=== PATIENT | female | born 1950 | race Caucasian/White ===

== ENCOUNTER → 2021-12-07 | Outpatient (CLI) | payer MEDICARE, OTHER | END | disposition home or self-care (01) | LOC: LAB SHORT 12:37 → LAB 12:37 | DX: N39.0 Urinary tract infection, site not specified (principal) | CPT/HCPCS: 87077; 87086; 87186 ==

== ENCOUNTER → 2021-12-21 | Outpatient (CLI) | payer MEDICARE, OTHER | END | disposition home or self-care (01) | LOC: LAB SHORT 13:20 | DX: N39.0 Urinary tract infection, site not specified (principal) | CPT/HCPCS: 87086 ==

== ENCOUNTER → 2023-04-10 | Outpatient (CLI) | payer MEDICARE, OTHER ==
[2023-04-10 16:15] LABS: Source, Urine Clean Catch
[2023-04-10 18:25] LABS: Appearance, Urine Cloudy (Clear); Bilirubin, Urine Neg (Neg); Blood, Urine 3+ (Neg); Color, Urine Yellow (P-Yellow); Glucose Qualitative, Urine Neg (Neg); Ketones, Urine Neg (Neg); Leukocyte Esterase, Urine 3+ (Neg); Nitrite, Urine Neg (Neg); Protein, Urine 2+ (Neg); Specific Gravity, Urine 1.015 (1.003-1.022); Urobilinogen, Urine NORM (Normal)
[2023-04-10 18:33] LABS: White Blood Cells, Urine TNTC /hpf (0-5)
[2023-04-10 18:34] LABS: Bacteria Many /hpf; Squamous Epithelial Cells Few /hpf (Few); Transitional Epithelial Cells Few /hpf (0-Rare)
== END ==
LOC: LAB SHORT 15:17 → LAB 15:17 → LAB FUT 04-09 16:15
PROVIDERS: Urology
DX: N39.0 Urinary tract infection, site not specified (principal)
CPT/HCPCS: 81001; 87086

== ENCOUNTER → 2024-05-03 | Outpatient (CLI) | payer MEDICARE, OTHER | END | disposition home or self-care (01) | LOC: LAB 08:35 → LAB SHORT 08:35 → PLD 08:35 | DX: L57.0 Actinic keratosis (principal) | CPT/HCPCS: 88305 ==

== ENCOUNTER → 2024-07-15 | Outpatient (CLI) | payer MEDICARE, OTHER ==
[2024-07-15 11:24] LABS: Source, Urine Voided
[2024-07-15 13:21] LABS: Appearance, Urine Cloudy (Clear); Bilirubin, Urine Neg (Neg); Blood, Urine 2+ (Neg); Color, Urine Yellow (P-Yellow); Glucose Qualitative, Urine Neg (Neg); Ketones, Urine Neg (Neg); Leukocyte Esterase, Urine 3+ (Neg); Nitrite, Urine Pos (Neg); Protein, Urine 1+ (Neg); Specific Gravity, Urine 1.015 (1.003-1.022); Urobilinogen, Urine NORM (Normal)
[2024-07-15 13:33] LABS: Bacteria Many /hpf; Squamous Epithelial Cells Mod /hpf (Few); White Blood Cells, Urine 25-50 /hpf (0-5)
== END ==
LOC: LAB 11:21 → LAB SHORT 11:21
PROVIDERS: Family Medicine
DX: R30.0 Dysuria (principal)
CPT/HCPCS: 81001; 87077; 87086; 87186

== ENCOUNTER 2024-08-06 09:17 | Day surgery (SDC) | payer MEDICARE, OTHER ==
[~2024-08-06 09:17] MED LIST: AZO D-MANNOSE500 M1 PO; B-12500 MC2 PO; CRANBERRY500 M1 PO; DONE5 PO; EUTHYROX125 MCG PO; GLUCHON PO; HYDCHL25 PO; LOSA50 PO; MAGNESIUM OXID500 MG; MEMA10 PO; METF500 PO; MULTI-VITAMIN1 EAC2 PO; Prozac20 MG PO; REPATHA SU140 MG/1 M SC; TURMERIC-GINGE1 EACH; VITAMIN A PO; Vitamin B Comple1 EA PO; ZYRTEC10 M2 PO
== END 2024-08-06 23:00 ==
LOC: MOI US 09:17
DX: D05.11 Intraductal carcinoma in situ of right breast (principal)
CPT/HCPCS: 19285; 77065; A4648

== ENCOUNTER 2024-08-13 06:02 | Day surgery (SDC) | payer MEDICARE, OTHER ==
[~2024-08-13] VITALS: Ht 157.5 cm; Wt 80.3 kg
[2024-08-13] VITALS (9 sets, daily range): BP systolic 141–199; BP diastolic 71–93
[2024-08-13] MEDS ORDERED: Lactated Ringer's 1,000 ML IV SCH (06:20)
[2024-08-13] MEDS ORDERED: CeFAZolin Sodium 2,000 MG in NS 100 ML IV SCH (06:20)
[2024-08-13] MEDS ORDERED: CeFAZolin Sodium 2,000 MG VIAL ONE (06:53)
--- NOTE | 2024-08-13 06:59 | NUR ---
History, Chart, Medications and Allergies reviewed before start of procedure. Pre-Op teaching done. Pt verbalizes understanding. Patient confirms NPO status and agrees with scheduled surgery. PT PHONE PLACED IN BELONGINGS BAG.
[2024-08-13] MEDS ORDERED: Bupivacaine 0.5% HCl 5 MG/ML 30MLVIAL ONE (07:08)
[2024-08-13] MEDS ORDERED: propofoL 20 ML IV ONE (07:13)
[2024-08-13] MEDS ORDERED: FentaNYL Citrate 50 MCG/ML 2 ML Injection ONE (07:14)
[2024-08-13] MEDS ORDERED: Glycopyrrolate 0.2 MG/ML 5ML VIAL ONE (07:34)
[2024-08-13] MEDS ORDERED: ePHEDrine Sulfate 50 MG/ML 1ML Injection ONE (07:35)
[2024-08-13] MEDS ORDERED: Dexamethasone Sod Phos 10 MG/ML 1ML VIAL ONE (07:44)
[2024-08-13] MEDS ORDERED: Albuterol 2.5 MG/3 ML VIAL INH PRN (08:00)
[2024-08-13] MEDS ORDERED: HYDROmorphone HCl/Pf 1MG SYR IV PRN ×2 (08:05)
[2024-08-13] MEDS ORDERED: Labetalol HCL 5 MG/ML 4ML Injection (Single Dose) IV PRN (08:05)
[2024-08-13] MEDS ORDERED: Atropine Sulfate 0.1 MG/ML 10ML SYR IV PRN (08:05)
[2024-08-13] MEDS ORDERED: Ondansetron HCl 2 MG / ML 2ML Vial IV PRN (08:05)
[2024-08-13] MEDS ORDERED: FentaNYL Citrate 50 MCG/ML 2 ML Injection IV PRN (08:05)
[2024-08-13] MEDS ORDERED: ePHEDrine Sulfate 50 MG/ML 1ML Injection IV PRN (08:10)
[2024-08-13] MEDS ORDERED: Ketorolac Tromethamine 30mg Vial IV PRN (08:15)
[2024-08-13] MEDS ORDERED: Ondansetron HCl 2 MG / ML 2ML Vial ONE (08:24)
[2024-08-13] MEDS ORDERED: HYDROcodone 5-APAP 325 TAB PO PRN (08:55)
--- NOTE | 2024-08-13 10:04 | NUR ---
DISCHARGE NOTE PT A&OX4, BREATHING RA, VSS. GLASSES AND DENTURES BACK IN PLACE C PT. PT CHATTING C STAFF, GRANDSON AT BEDSIDE. PT TOLERATING PO INTAKE. Patient up to Ambulate independently. Gait steady.USES CANE. CANE SENT HOME C PT. Discharge instructions reviewed with patient. Patient verbalizes understanding. Copy given to patient to take home. Dressing to procedure site clean, dry, intact with no visible drainage, swelling, erythema or bruising noted.BREAST BINDER I PLACE. Discharged via wheelchair to private car for ride home.
== END 2024-08-13 10:05 | disposition home or self-care (01) ==
LOC: ORSCMMR 06:02 → ORD 07:30 → ORSCMMR 10:05
PROVIDERS: Surgery
PROC: 0HBT0ZZ Excision of Right Breast, Open Approach (ICD-10-PCS; principal; 2024-08-13 07:30)
DX: D05.11 Intraductal carcinoma in situ of right breast (principal); F17.210 Nicotine dependence, cigarettes, uncomplicated; E11.9 Type 2 diabetes mellitus without complications; J44.9 Chronic obstructive pulmonary disease, unspecified; K31.84 Gastroparesis; E78.5 Hyperlipidemia, unspecified; I10 Essential (primary) hypertension; E03.9 Hypothyroidism, unspecified; G47.33 Obstructive sleep apnea (adult) (pediatric); F41.9 Anxiety disorder, unspecified; K21.9 Gastro-esophageal reflux disease without esophagitis; Z79.84 Long term (current) use of oral hypoglycemic drugs; Z79.899 Other long term (current) drug therapy
CPT/HCPCS: 76098; 82947; 88307; 88342; J0690; J1100; J2405; J2704; J3010; J7120

== ENCOUNTER → 2025-03-01 | Outpatient (CLI) | payer MEDICARE, OTHER ==
[2025-03-02 11:27] LABS: Stool Occult Bld Immuno 1 Negative (NEGATIVE)
[2025-03-04 10:46] LABS: CALPROTECTIN,FECAL 5 ug/g (<=49)
== END | disposition home or self-care (01) ==
LOC: LAB SHORT 13:17 → LAB 13:17
DX: K52.9 Noninfective gastroenteritis and colitis, unspecified (principal)
CPT/HCPCS: 82274; 83993

== ENCOUNTER 2025-03-31 08:23 | Day surgery (SDC) | payer MEDICARE, OTHER ==
[~2025-03-31] VITALS: Ht 157.5 cm; Wt 79.9 kg
[2025-03-31] MEDS ORDERED: Tranexamic Acid 100 ML IV ONE (08:47)
[2025-03-31] MEDS ORDERED: CeFAZolin Sodium 2,000 MG VIAL ONE (08:48)
[2025-03-31] MEDS ORDERED: CINSULIN (09:00)
[2025-03-31] MEDS ORDERED: FentaNYL Citrate 50 MCG/ML 2 ML Injection ONE (09:01)
[2025-03-31] MEDS ORDERED: QUERCETIN500 MG (09:02)
[2025-03-31] MEDS ORDERED: VITAMIN D325 MC3 (09:03)
[2025-03-31] MEDS ORDERED: ANASTROZOLE1 M7 (09:04)
[2025-03-31] MEDS ORDERED: Dexamethasone Sod Phos 10 MG/ML 1ML VIAL ONE ×2 (09:04→09:14)
[2025-03-31] MEDS ORDERED: Rocuronium Bromide 10 MG/ML 5ML Injection IV ONE (09:04)
[2025-03-31] MEDS ORDERED: Ondansetron HCl 2 MG / ML 2ML Vial ONE ×2 (09:04→11:24)
[2025-03-31] MEDS ORDERED: FAMO20 (09:06)
[2025-03-31] MEDS ORDERED: Ropivacaine 0.5% HCL/PF 5 MG/ML 30ML Vial ONE (09:07)
[2025-03-31] MEDS ORDERED: Midazolam HCl 1MG / ML 2ML Vial ONE (09:07)
--- NOTE | 2025-03-31 10:24 | NUR ---
03/31/25 1024 Kacie Garcia PT HAD BLOCK DONE ON LEFT ARM IN PREOP T/O:1004 START:1013 END:1018
[2025-03-31] MEDS ORDERED: Lidocaine 1%-Epineph 1:100000 20 ML MDV ONE (10:27)
--- NOTE | 2025-03-31 11:04 | NUR ---
03/31/25 1104 Janessa Tran 1ST DOES TXA STARTED BY NATHANIEL HARRIS @ 1045.
[2025-03-31] MEDS ORDERED: Phenylephrine HCl 10mg/ml 1 ml Vial ONE (11:11)
[2025-03-31] MEDS ORDERED: Phenylephrine HCl 100 MCG/ML-NS 10MLSYR (1MG/10ML) ONE (11:13)
[2025-03-31] MEDS ORDERED: Sugammadex Sodium 200 MG/2ML SDV (100 MG/ML) ONE (11:28)
[2025-03-31 14:27] VITALS: BP 128/67
== END 2025-03-31 13:52 | disposition home or self-care (01) ==
LOC: ORSCSDS 08:23
PROVIDERS: Orthopaedic Surgery
PROC: 0RRK00Z Replacement of Left Shoulder Joint with Reverse Ball and Socket Synthetic Substitute, Open Approach (ICD-10-PCS; principal; 2025-03-31 10:00)
DX: M19.012 Primary osteoarthritis, left shoulder (principal); I10 Essential (primary) hypertension; E78.5 Hyperlipidemia, unspecified; J44.9 Chronic obstructive pulmonary disease, unspecified; Z87.891 Personal history of nicotine dependence; G47.33 Obstructive sleep apnea (adult) (pediatric); K21.9 Gastro-esophageal reflux disease without esophagitis; Z86.73 Personal history of transient ischemic attack (TIA), and cerebral infarction without residual deficits; E03.9 Hypothyroidism, unspecified; F41.9 Anxiety disorder, unspecified; E66.9 Obesity, unspecified; Z68.32 Body mass index [BMI] 32.0-32.9, adult; Z79.899 Other long term (current) drug therapy; Z79.84 Long term (current) use of oral hypoglycemic drugs; Z85.3 Personal history of malignant neoplasm of breast
CPT/HCPCS: 73030; 82947; A9270; C1713; C1776; J0690; J1100; J2250; J2371; J2405; J2704; J2795; J3010; J7120

== ENCOUNTER → 2025-04-26 | Outpatient (CLI) | payer MEDICARE, OTHER ==
[~2025-04-26] MED LIST changes: +ANASTROZOLE1 M7; +CINSULIN; +FAMO20; +QUERCETIN500 MG; +VITAMIN D325 MC3
[2025-04-27 12:02] LABS: Bacterial Vaginosis PCR Negative (NEGATIVE); Candida Group, PCR NOT DETECTED (NOT DETECT); Candida glabrata-krusei, PCR DETECTED (NOT DETECT)
== END | disposition home or self-care (01) ==
LOC: LAB SHORT 17:15 → LAB 17:15
PROVIDERS: Student in an Organized Health Care Education/Training Program
DX: N89.8 Other specified noninflammatory disorders of vagina (principal); R30.0 Dysuria
CPT/HCPCS: 81515; 87086